=== PATIENT | male | born 1970 | race Caucasian/White ===

== ENCOUNTER 2017-10-31 14:00 | Emergency (ER) | payer SELFPAY ==
[~2017-10-31] VITALS: Ht 188 cm; Wt 90.9 kg
[2017-10-31 14:05] VITALS: BP 124/89
[2017-10-31] MEDS ORDERED: SODIUM CHLORIDE FLUSH 10ML SYR IVF ONE (14:30)
[2017-10-31] MEDS ORDERED: ASPIRIN 81 MG TABLET CHEW PO ONE (14:30)
[2017-10-31 14:47] LABS: BASOPHILS # (AUTO) 0.05 x10^3/uL (0-0.1); BASOPHILS % (AUTO) 1 % (0-1); EOSINOPHILS # (AUTO) 0.21 x10^3/uL (0-0.4); EOSINOPHILS % (AUTO) 2 % (1-7); LYMPHOCYTES # (AUTO) 2.75 x10^3/uL (1-3.4); LYMPHOCYTES % (AUTO) 28 % (22-44); MD NO; MEAN CORPUSCULAR HEMOGLOBIN 30.9 pg (27.5-34.5); MEAN CORPUSCULAR HGB CONC 34.1 g/dL (33.2-36.2); MEAN CORPUSCULAR VOLUME 90.7 fL (81-97); MEAN PLATELET VOLUME 7.6 fL (7.4-10.4); MONOCYTES % (AUTO) 5 % (2-9); NEUTROPHILS % (AUTO) 65 % (42-75); PLATELET COUNT 353 x10^3/uL (130-400); RED BLOOD COUNT 5.35 x10^6/uL (4.38-5.82); RED CELL DISTRIBUTION WIDTH 12.9 % (9.4-14.8)
[2017-10-31 15:00] LABS: ALANINE AMINOTRANSFERASE 44 U/L (12-78); ANION GAP 9 mmol/L (5-15); CALCIUM 8.3 mg/dL (8.5-10.1); CHLORIDE 109 mmol/L (98-107)
[2017-10-31 15:04] LABS: ALKALINE PHOSPHATASE 83 U/L (45-117); BILIRUBIN,TOTAL 1.1 mg/dL (0.2-1.0); TOTAL PROTEIN 7.6 g/dL (6.4-8.2); TROPONIN I < 0.015 ng/mL (0.000-0.045)
[2017-10-31] MEDS ORDERED: ASPIRIN 81 MG TABLET CHEW ONE (15:20)
== END 2017-10-31 16:20 | disposition home or self-care (01) ==
LOC: ED 16:04
DX: R07.89 Other chest pain (principal); F17.210 Nicotine dependence, cigarettes, uncomplicated; Z79.82 Long term (current) use of aspirin
CPT/HCPCS: 36415; 71045; 80053; 84484; 85025; 85379; 93005; 99285

== ENCOUNTER 2018-08-29 20:11 | Inpatient (IN) | payer OTHER ==
[~2018-08-29] VITALS: Ht 188 cm; Wt 86.6 kg
[2018-08-29] MEDS ORDERED: ONDANSETRON 2MG/ML, 2ML ONE (21:18)
[2018-08-29] MEDS ORDERED: ACETAMINOPHEN 325 MG TABLET ONE (21:18)
[2018-08-29] MEDS ORDERED: KETOROLAC 30 MG/1 ML ONE (21:18)
[2018-08-29 21:29] LABS: BASOPHILS # (AUTO) 0.02 x10^3/uL (0-0.1); BASOPHILS % (AUTO) 0 % (0-1); EOSINOPHILS # (AUTO) 0.01 x10^3/uL (0-0.4); EOSINOPHILS % (AUTO) 0 % (1-7); LYMPHOCYTES # (AUTO) 0.38 x10^3/uL (1-3.4); LYMPHOCYTES % (AUTO) 4 % (22-44); MD NO; MEAN CORPUSCULAR HEMOGLOBIN 31.1 pg (27.5-34.5); MEAN CORPUSCULAR HGB CONC 34.7 g/dL (33.2-36.2); MEAN CORPUSCULAR VOLUME 89.7 fL (81-97); MONOCYTES # (AUTO) 0.45 x10^3/uL (0.2-0.8); MONOCYTES % (AUTO) 4 % (2-9); NEUTROPHILS # (AUTO) 9.37 x10^3/uL (1.8-6.8); NEUTROPHILS % (AUTO) 92 % (42-75); PLATELET COUNT 305 x10^3/uL (130-400); RED BLOOD COUNT 5.09 x10^6/uL (4.38-5.82); RED CELL DISTRIBUTION WIDTH 13.1 % (9.4-14.8)
[2018-08-29] MEDS ORDERED: SODIUM CHLORIDE FLUSH 10ML SYR IVF ONE (21:30)
[2018-08-29] MEDS ORDERED: ONDANSETRON 2MG/ML, 2ML IVPush ONE (21:30)
[2018-08-29] MEDS ORDERED: ACETAMINOPHEN 325 MG TABLET PO ONE (21:30)
[2018-08-29] MEDS ORDERED: SODIUM CHLORIDE 0.9% 1,000ML IVBOLUS ONE (21:30)
[2018-08-29] MEDS ORDERED: KETOROLAC 30 MG/1 ML IVPush ONE (21:30)
[2018-08-29 21:39] LABS: INTERNATIONAL NORMALIZED RATIO 1.02 (0.93-1.1); PROTHROMBIN TIME 10.8 Seconds (9.6-11.5)
[2018-08-29 21:40] LABS: ALANINE AMINOTRANSFERASE 28 U/L (12-78); ALBUMIN 3.8 g/dL (3.4-5.0); ANION GAP 12 mmol/L (5-15); CALCIUM 8.3 mg/dL (8.5-10.1); CHLORIDE 105 mmol/L (98-107); CREATININE 1.55 mg/dL (0.7-1.3)
[2018-08-29 21:41] LABS: RAPID INFLUENZA A Negative (Negative); RAPID INFLUENZA B Negative (Negative)
[2018-08-29 21:45] LABS: ALKALINE PHOSPHATASE 73 U/L (45-117); BILIRUBIN,TOTAL 1.3 mg/dL (0.2-1.0); TOTAL PROTEIN 7.2 g/dL (6.4-8.2); TROPONIN I < 0.015 ng/mL (0.000-0.045)
[2018-08-29] MEDS ORDERED: OMNIPAQUE 350 MG/ML, 100ML BOTTLE ONE (22:15)
[2018-08-29] MEDS ORDERED: GABAPENTIN 300 MG CAPSULE PO PRN (23:30)
[2018-08-29] MEDS ORDERED: PROMETHAZINE 25 MG/ML, 1ML IM PRN (23:30)
[2018-08-29] MEDS ORDERED: NITROGLYCERIN 0.4 MG BOTTLE (25 TABS) SL PRN (23:30)
[2018-08-29] MEDS ORDERED: POLYETHYLENE GLYCOL 17 GM PACKET PO PRN (23:30)
[2018-08-29] MEDS ORDERED: BISACODYL 10 MG SUPP PR PRN (23:30)
[2018-08-29] MEDS ORDERED: DOCUSATE 100 MG CAPSULE PO PRN (23:30)
[2018-08-29] MEDS: HEPARIN 5,000 UNITS/ML, 1ML SQ SCH (23:30)
[2018-08-29] MEDS ORDERED: ONDANSETRON ODT 4 MG PO PRN (23:30)
[2018-08-29] MEDS ORDERED: OXYcodone IR 5MG TABLET PO PRN (23:30)
[2018-08-29] MEDS ORDERED: morphine SULFATE 10 MG/ML, 1ML IVPush PRN (23:30)
[2018-08-29] MEDS ORDERED: hydrALAzine 20 MG/ML, 1ML IVPush PRN (23:30)
[2018-08-29] MEDS ORDERED: ONDANSETRON 2MG/ML, 2ML IVPush PRN (23:30)
[2018-08-29 23:48] VITALS: BP 100/66
[2018-08-29] MEDS: NICOTINE 14MG/24 HR PATCH.TD24 TD SCH (23:57)
[2018-08-29] MEDS: SODIUM CHLORIDE 0.9% 1,000 ML IV SCH (23:57)
[2018-08-30] MEDS ORDERED: CEFTRIAXONE PMX 2GM/50ML 50 ML IV SCH
[2018-08-30 00:15] LABS: FREE T4 (FREE THYROXINE) 1.12 ng/dL (0.76-1.46); THYROID STIMULATING HORMONE 1.09 mIU/L (0.358-3.740)
[2018-08-30 00:28] VITALS: BP 100/66
[2018-08-30 01:05] LABS: TROPONIN I < 0.015 ng/mL (0.000-0.045)
[2018-08-30] MEDS: DOXYCYCLINE 100 MG in DEXTROSE 5% 250 ML IV SCH ×2 (01:06→12:32)
[2018-08-30 01:21] VITALS: BP 92/56
[2018-08-30] MEDS: ASPIRIN 325 MG TABLET EC PO SCH (05:37)
[2018-08-30] MEDS: ACETAMINOPHEN 325 MG TABLET PO PRN ×4 (05:37→22:31)
[2018-08-30 06:16] LABS: MICROSCOPIC NOT IND
[2018-08-30 06:22] LABS: CULTURE INDICATED? NO
[2018-08-30 07:04] LABS: BASOPHILS # (AUTO) 0.01 x10^3/uL (0-0.1); BASOPHILS % (AUTO) 0 % (0-1); EOSINOPHILS # (AUTO) 0.01 x10^3/uL (0-0.4); EOSINOPHILS % (AUTO) 0 % (1-7); LYMPHOCYTES # (AUTO) 0.33 x10^3/uL (1-3.4); LYMPHOCYTES % (AUTO) 5 % (22-44); MD NO; MEAN CORPUSCULAR HEMOGLOBIN 30.8 pg (27.5-34.5); MEAN CORPUSCULAR HGB CONC 34.3 g/dL (33.2-36.2); MEAN CORPUSCULAR VOLUME 89.7 fL (81-97); MEAN PLATELET VOLUME 7.4 fL (7.4-10.4); MONOCYTES # (AUTO) 0.31 x10^3/uL (0.2-0.8); MONOCYTES % (AUTO) 5 % (2-9); NEUTROPHILS # (AUTO) 5.87 x10^3/uL (1.8-6.8); NEUTROPHILS % (AUTO) 90 % (42-75); PLATELET COUNT 237 x10^3/uL (130-400); RED BLOOD COUNT 4.48 x10^6/uL (4.38-5.82); RED CELL DISTRIBUTION WIDTH 13.4 % (9.4-14.8)
[2018-08-30 07:13] LABS: TROPONIN I 0.015 ng/mL (0.000-0.045)
[2018-08-30 07:17] LABS: ALANINE AMINOTRANSFERASE 26 U/L (12-78); ALBUMIN 3.2 g/dL (3.4-5.0); ANION GAP 11 mmol/L (5-15); CALCIUM 7.5 mg/dL (8.5-10.1); CHLORIDE 110 mmol/L (98-107); CHOLESTEROL, TOTAL 136 mg/dL (140-239); CREATININE 1.14 mg/dL (0.7-1.3); TRIGLYCERIDES 126 mg/dL (50-200); VLDL CHOLESTEROL 25 mg/dL (0-25)
[2018-08-30 07:19] LABS: ALKALINE PHOSPHATASE 60 U/L (45-117); BILIRUBIN,TOTAL 0.9 mg/dL (0.2-1.0); HDL CHOL % 20 % (26-37); HDL CHOLESTEROL (DIRECT) 27 mg/dL (40-60); LDL CHOLESTEROL,CALCULATED 84 mg/dL (54-169); LDL/HDL RATIO 3.1 (0.5-3.0)
[2018-08-30 07:20] VITALS: BP 93/54
[2018-08-30] MEDS: HEPARIN 5,000 UNITS/ML, 1ML SQ SCH ×3 (07:30→22:31)
[2018-08-30] MEDS: SODIUM CHLORIDE 0.9% 1,000 ML IV SCH (08:12)
[2018-08-30] MEDS ORDERED: REGADENOSON 0.4 MG/5 ML SYRINGE ONE (09:16)
[2018-08-30] MEDS ORDERED: VANCOMYCIN PMX 1GM/200ML 200 ML IV ONE (09:30)
[2018-08-30] MEDS ORDERED: VANCOMYCIN PER PHARMACY MC PRN (09:30)
[2018-08-30] MEDS: PIPERACILLIN/TAZO/PMX 3.375GM 50 ML IV SCH ×3 (11:33→22:30)
[2018-08-30] MEDS ORDERED: PHARMACOKINETIC MONITORING MC PRN (12:00)
[2018-08-30] MEDS: VANCOMYCIN 1,700 MG in SODIUM CHLORIDE 0.9% 250 ML IV SCH (12:32)
[2018-08-30] MEDS ORDERED: OMNIPAQUE 350 MG/ML, 100ML BOTTLE ONE (12:39)
[2018-08-30 13:00] VITALS: BP 103/63
[2018-08-30] MEDS: GUAIFENESIN/DM 200-20MG, 10ML UDC PO PRN (16:23)
[2018-08-30 19:34] VITALS: BP 95/57
[2018-08-30] MEDS: NICOTINE 14MG/24 HR PATCH.TD24 TD SCH (22:31)
[2018-08-31] MEDS: VANCOMYCIN 1,700 MG in SODIUM CHLORIDE 0.9% 250 ML IV SCH ×2 (00:08→13:32)
[2018-08-31] MEDS: DOXYCYCLINE 100 MG in DEXTROSE 5% 250 ML IV SCH ×2 (00:14→15:06)
[2018-08-31 00:52] VITALS: BP 94/60
[2018-08-31] MEDS: PIPERACILLIN/TAZO/PMX 3.375GM 50 ML IV SCH ×3 (04:52→16:56)
[2018-08-31] MEDS: ASPIRIN 325 MG TABLET EC PO SCH (05:06)
[2018-08-31] MEDS: ACETAMINOPHEN 325 MG TABLET PO PRN ×3 (05:06→21:24)
[2018-08-31] MEDS: GUAIFENESIN/DM 200-20MG, 10ML UDC PO PRN ×2 (05:06→21:24)
[2018-08-31 06:55] VITALS: BP 107/62
[2018-08-31] MEDS: HEPARIN 5,000 UNITS/ML, 1ML SQ SCH ×2 (08:29→16:57)
[2018-08-31 13:03] LABS: CLOSTRIDIUM DIFFICILE ANTIGEN NEGATIVE; CLOSTRIDIUM DIFFICILE TOXIN NEGATIVE (Negative)
[2018-08-31] MEDS: LACTOBACILLUS CHEW TABLET PO SCH ×3 (13:36→21:24)
[2018-08-31 13:40] VITALS: BP 109/67
[2018-08-31 21:47] LABS: OCCULT BLOOD NEGATIVE (NEGATIVE)
[2018-08-31 21:59] VITALS: BP 112/69
[2018-08-31 22:42] VITALS: BP 104/69
[2018-08-31] MEDS: NICOTINE 14MG/24 HR PATCH.TD24 TD SCH (23:30)
[2018-09-01] MEDS: PIPERACILLIN/TAZO/PMX 3.375GM 50 ML IV SCH ×2 (00:16→05:52)
[2018-09-01] MEDS: HEPARIN 5,000 UNITS/ML, 1ML SQ SCH ×3 (00:30→16:29)
[2018-09-01] MEDS: VANCOMYCIN 1,700 MG in SODIUM CHLORIDE 0.9% 250 ML IV SCH (00:58)
[2018-09-01 01:56] VITALS: BP 105/67
[2018-09-01] MEDS: DOXYCYCLINE 100 MG in DEXTROSE 5% 250 ML IV SCH (02:56)
[2018-09-01] MEDS: ASPIRIN 325 MG TABLET EC PO SCH (06:00)
[2018-09-01 07:03] VITALS: BP 110/69
[2018-09-01] MEDS: ACETAMINOPHEN 325 MG TABLET PO PRN ×2 (07:19→19:23)
[2018-09-01] MEDS: LACTOBACILLUS CHEW TABLET PO SCH ×3 (08:25→19:23)
[2018-09-01 11:30] LABS: BASOPHILS # (AUTO) 0.02 x10^3/uL (0-0.1); BASOPHILS % (AUTO) 0 % (0-1); EOSINOPHILS % (AUTO) 0 % (1-7); LYMPHOCYTES # (AUTO) 1.26 x10^3/uL (1-3.4); LYMPHOCYTES % (AUTO) 27 % (22-44); MD NO; MEAN CORPUSCULAR HGB CONC 34.7 g/dL (33.2-36.2); MEAN CORPUSCULAR VOLUME 89.6 fL (81-97); MEAN PLATELET VOLUME 7.8 fL (7.4-10.4); MONOCYTES # (AUTO) 0.24 x10^3/uL (0.2-0.8); MONOCYTES % (AUTO) 5 % (2-9); NEUTROPHILS # (AUTO) 3.13 x10^3/uL (1.8-6.8); NEUTROPHILS % (AUTO) 67 % (42-75); PLATELET COUNT 178 x10^3/uL (130-400); RED BLOOD COUNT 4.39 x10^6/uL (4.38-5.82); RED CELL DISTRIBUTION WIDTH 12.9 % (9.4-14.8)
[2018-09-01 11:39] LABS: ANION GAP 8 mmol/L (5-15); CALCIUM 7.7 mg/dL (8.5-10.1); CHLORIDE 106 mmol/L (98-107); CREATININE 0.98 mg/dL (0.7-1.3)
[2018-09-01 13:05] LABS: HCT (SEDRATE) 39.3 % (39.2-51.8)
[2018-09-01 13:19] VITALS: BP 102/63
[2018-09-01 19:08] VITALS: BP 121/69
[2018-09-01] MEDS: NICOTINE 14MG/24 HR PATCH.TD24 TD SCH (23:30)
[2018-09-02] MEDS: HEPARIN 5,000 UNITS/ML, 1ML SQ SCH ×2 (00:30→08:30)
[2018-09-02 03:05] VITALS: BP 97/56
[2018-09-02] MEDS: ACETAMINOPHEN 325 MG TABLET PO PRN (03:10)
[2018-09-02] MEDS: ASPIRIN 325 MG TABLET EC PO SCH (05:51)
[2018-09-02 06:59] VITALS: BP 94/52
[2018-09-02] MEDS: LACTOBACILLUS CHEW TABLET PO SCH (09:00)
[2018-09-02 11:38] LABS: BASOPHILS # (AUTO) 0.01 x10^3/uL (0-0.1); BASOPHILS % (AUTO) 0 % (0-1); EOSINOPHILS % (AUTO) 0 % (1-7); LYMPHOCYTES # (AUTO) 1.19 x10^3/uL (1-3.4); LYMPHOCYTES % (AUTO) 28 % (22-44); MD NO; MEAN CORPUSCULAR HEMOGLOBIN 31.1 pg (27.5-34.5); MEAN CORPUSCULAR HGB CONC 34.9 g/dL (33.2-36.2); MEAN CORPUSCULAR VOLUME 89.2 fL (81-97); MEAN PLATELET VOLUME 7.5 fL (7.4-10.4); MONOCYTES % (AUTO) 7 % (2-9); NEUTROPHILS # (AUTO) 2.82 x10^3/uL (1.8-6.8); NEUTROPHILS % (AUTO) 65 % (42-75); PLATELET COUNT 186 x10^3/uL (130-400); RED BLOOD COUNT 4.31 x10^6/uL (4.38-5.82); RED CELL DISTRIBUTION WIDTH 12.8 % (9.4-14.8)
[2018-09-02 11:48] LABS: ANION GAP 8 mmol/L (5-15); CALCIUM 7.8 mg/dL (8.5-10.1); CHLORIDE 103 mmol/L (98-107)
[2018-09-02 11:49] LABS: CREATININE 0.93 mg/dL (0.7-1.3)
[2018-09-02] MEDS ORDERED: METR500T PO (12:35)
[2018-09-02] MEDS ORDERED: CEFD300C37 PO (12:35)
[2018-09-02 12:38] VITALS: BP 115/64
[2018-09-02] MEDS ORDERED: ACET-1600 PO (12:41)
[2018-09-02] MEDS ORDERED: POTASSIUM CHLORIDE 20 MEQ TAB.ER.PRT PO ONE (13:00)
== END 2018-09-02 14:11 | disposition home or self-care (01) | DRG 871 ==
LOC: ED 22:36 → EDIP 22:37 → ED 22:48 → 5SO 23:44 → 3NE 08-31 22:41
PROVIDERS: ADMIT Internal Medicine; ATTEND Internal Medicine
DX: A41.9 Sepsis, unspecified organism (principal); J96.01 Acute respiratory failure with hypoxia; N17.0 Acute kidney failure with tubular necrosis; E87.2 Acidosis; K52.9 Noninfective gastroenteritis and colitis, unspecified; R65.20 Severe sepsis without septic shock; K80.20 Calculus of gallbladder without cholecystitis without obstruction; F17.200 Nicotine dependence, unspecified, uncomplicated; E86.0 Dehydration; Z87.01 Personal history of pneumonia (recurrent); Z79.899 Other long term (current) drug therapy
CPT/HCPCS: 36415; 71045; 71275; 74177; 76700; 78452; 80048; 80053; 80061; 80202; 81003; 82272; 83036; 83605; 83735; 83880; 84145; 84439; 84443; 84484; 85025; 85610; 85651; 85730; 86140; 87040; 87324; 87400; 93005; 93017; 93306; 96361; 96374; 96375; 99285; G0378; J0696; J1644; J1885; J2405; J2543; J2785; J3370; J7060; Q9967; A9502; C9898; J7030; J7050

== ENCOUNTER 2019-10-13 00:21 | Emergency (ER) | payer SELFPAY ==
[~2019-10-13] VITALS: Ht 188 cm; Wt 93.0 kg
[~2019-10-13 00:21] MED LIST: ACET-1600 PO; CEFD300C37 PO; METR500T PO
[2019-10-13 00:24] VITALS: BP 145/82
[2019-10-13] MEDS ORDERED: CLINDAMYCIN 300 MG CAPSULE PO ONE (01:00)
[2019-10-13] MEDS ORDERED: LIDOCAINE 1%, 2ML INFIL ONE (01:00)
[2019-10-13] MEDS ORDERED: BUPIVACAINE/PF 0.25% INFIL ONE (01:00)
[2019-10-13] MEDS ORDERED: BUPIVACAINE 0.25% ONE (01:04)
[2019-10-13] MEDS ORDERED: CLINDAMYCIN 300 MG CAPSULE ONE (01:15)
--- NOTE | 2019-10-13 01:20 | NUR ---
pt medicated, tomeka barrera at bs.
== END 2019-10-13 02:15 | disposition home or self-care (01) ==
LOC: ED 02:02
DX: K04.7 Periapical abscess without sinus (principal); K02.9 Dental caries, unspecified; F17.200 Nicotine dependence, unspecified, uncomplicated
CPT/HCPCS: 41800; 99283